=== PATIENT | female | born 1945 ===

== ENCOUNTER 2022-06-05 05:30 | Day surgery (SDC) | payer OTHER ==
[~2022-06-05] VITALS: Ht 162.6 cm; Wt 67.1 kg
[~2022-06-05 05:30] MED LIST: AVAPRO150 MG PO; D3 + K2 DOTS 11 EACH PO; FOSAMAX70 MG PO; LEVO-T125 MCG PO; RESTORIL30 M1 PO
== END 2022-06-05 14:00 | disposition home or self-care (01) ==
LOC: CIR.AMB 05:30
PROVIDERS: ATTEND Surgery Surgery of the Hand
DX: M67.441 Ganglion, right hand (principal); Z42.8 Encounter for other plastic and reconstructive surgery following medical procedure or healed injury; Z91.041 Radiographic dye allergy status; I10 Essential (primary) hypertension; E78.5 Hyperlipidemia, unspecified; J45.909 Unspecified asthma, uncomplicated; E03.9 Hypothyroidism, unspecified